=== PATIENT | male | born 1960 | race Caucasian/White ===

== ENCOUNTER 2019-02-07 09:30 | Emergency (ER) | payer BC ==
--- OUTSIDE RECORDS SUMMARY | 2019-02-07 09:31 | XMS REPORT ---
:1960 Author Organization eClinicalWorks Care Team Providers Name Role Phone Manuel, [facility] Provider Role Unavailable Allergies No Known Allergies Problems Problem Type Condition Code Onset Dates Condition Status Problem Kidney stone N20.0 Active Problem Elevated blood-pressure reading, R03.0 Active without diagnosis of hypertension Problem Seasonal allergic rhinitis, J30.2 Active unspecified trigger Problem Dermatitis due to plants, including L25.5 Active poison oscar, sumac, and oak Problem Body mass index (BMI) of 30.0 to 39.9 E66.9 Active Medications No Known Medications Results No Known Results Summary Purpose eClinicalWorks Submission
[2019-02-07] MEDS ORDERED: BUPIVACAINE 0.5% PF 10 ML VIAL ONE (09:51)
[2019-02-07] MEDS ORDERED: LIDOCAINE 1% MPF 5 ML VIAL ONE (09:51)
--- NOTE | 2019-02-07 10:32 | EDPHYS ---
Physician Documentation [facility] Name: Filipe Gutierrez Age: 58 yrs Sex: Male : 1960 Arrival Date: 02/07/2019 Time: 09:32 Bed 19 Private MD: Marty Manuel ED Physician Ismael Cruz HPI: 02/07 09:48 This 58 yrs old Male presents to ER via Ambulatory with complaints of Thumb kb Infection/Swelling. 09:48 The patient presents with an abscess of the dorsal aspect of distal phalanx of left kb thumb. Description: erythematous, swollen. Onset: The symptoms/episode began/occurred 4 day(s) ago. Possible cause(s): unknown. Associated signs and symptoms: Pertinent positives: erythema, swelling, Pertinent negatives: discharge, drainage, foreign body sensation, fever, headache, nausea, shortness of breath, vomiting. Modifying factors: the symptoms are alleviated by nothing, the symptoms are aggravated by nothing. Severity of symptoms: At their worst the symptoms were moderate, in the emergency department the symptoms are unchanged. The patient has not experienced similar symptoms in the past. The patient has not recently seen a physician. ROS: 09:47 Constitutional: Negative for fever, chills, and weight loss, Cardiovascular: Negative kb for chest pain, palpitations, and edema, Respiratory: Negative for shortness of breath, cough, wheezing, and pleuritic chest pain, Abdomen/GI: Negative for abdominal pain, nausea, vomiting, diarrhea, and constipation, MS/Extremity: Negative for injury and deformity, Neuro: Negative for headache, weakness, numbness, tingling, and seizure. 09:47 Skin: Positive for abscess, erythema, of the dorsal aspect of distal phalanx of left thumb. Exam: 09:47 Constitutional: This is a well developed, well nourished patient who is awake, alert, kb and in no acute distress. Head/Face: Normocephalic, atraumatic. Neck: Trachea midline, no thyromegaly or masses palpated, and no cervical lymphadenopathy. Supple, full range of motion without nuchal rigidity, or vertebral point tenderness. No Meningismus. Chest/axilla: Normal chest wall appearance and motion. Nontender with no deformity. No lesions are appreciated. Cardiovascular: Regular rate and rhythm with a normal S1 and S2. No gallops, murmurs, or rubs. Normal PMI, no JVD. No pulse deficits. Respiratory: Lungs have equal breath sounds bilaterally, clear to auscultation and percussion. No rales, rhonchi or wheezes noted. No increased work of breathing, no retractions or nasal flaring. Abdomen/GI: Soft, non-tender, with normal bowel sounds. No distension or tympany. No guarding or rebound. No evidence of tenderness throughout. MS/ Extremity: Pulses equal, no cyanosis. Neurovascular intact. Full, normal range of motion. Neuro: Awake and alert, GCS 15, oriented to person, place, time, and situation. Cranial nerves II-XII grossly intact. Motor strength 5/5 in all extremities. Sensory grossly intact. Cerebellar exam normal. Normal gait. 09:47 Skin: abscess, that is small, of the dorsal aspect of distal phalanx of left thumb, with fluctuance. Vital Signs: 09:51 BP 160 / 108 LA Sitting (/lg); Pulse 61; Resp 18; Temp 98.8; Pulse Ox 98% ; Pain 9/10; tt1 10:51 BP 158 / 95; em Procedures: 10:27 I \T\ D: Incision and drainage was performed for an abscess of the right dorsal aspect of kb distal phalanx of left thumb Prepped with alcohol, Anesthetized with block. Incised with 18G needle. Drained moderate amount purulent fluid. Dressing: sterile 4x4 gauze, the patient tolerated the procedure well. Nerve block: (digital) of right thumb Medication: Lidocaine 1% without epinephrine Marcaine 0.5%, Amount: 6 mls were injected, Effect: the patient's symptoms are improved, Set up for procedure. Performed by Alanis BERRY Patient tolerated well. MDM: 09:36 Patient medically screened. kb 09:47 Data reviewed: vital signs, nurses notes. Data interpreted: Pulse oximetry: on room air kb is 100 %. Interpretation: normal. 10:30 Counseling: I had a detailed discussion with the patient and/or guardian regarding: the kb historical points, exam findings, and any diagnostic results supporting the discharge/admit diagnosis, the need for outpatient follow up, a family practitioner, to return to the emergency department if symptoms worsen or persist or if there are any questions or concerns that arise at home. Administered Medications: 10:00 Drug: Lidocaine (1 %) 1 vials {Note: adminisitered by BRENDA Thapa.} Volume: 5 ml; em Route: Infiltration; Site: affected area; 10:10 Follow up: Response: No adverse reaction; Pain is decreased iw 10:00 Drug: Marcaine (0.5 %) 1 vials {Note: administered by BRENDA Thapa.} Volume: 10 ml; em Route: Infiltration; Site: affected area; 10:10 Follow up: Response: No adverse reaction; Pain is decreased iw 10:05 Drug: Bactrim (160 mg-800 mg (DS) 1 tablet Route: PO; em 10:51 Follow up: Response: Medication administered at discharge. em 10:45 Drug: Tylenol #3 (300 mg-30 mg) 2 tabs Route: PO; em 10:51 Follow up: Response: Medication administered at discharge. em Disposition: 02/07/19 10:32 Discharged to Home. Impression: Cutaneous abscess of right hand - paronychia, thumb. - Condition is Stable. - Discharge Instructions: Paronychia, Iusi-[id number]. - Prescriptions for Tylenol- Codeine #3 300-30 mg Oral Tablet - take 1 tablet by ORAL route every 6 hours As needed; 15 tablet. Bactrim DS 800- 160 mg Oral Tablet - take 1 tablet by ORAL route every 12 hours for 7 days; 14 tablet. - Medication Reconciliation Form, Thank You Letter, Antibiotic Education, Prescription Opioid Use form. - Follow up: Private Physician; When: 2 - 3 days; Reason: Recheck today's complaints, Continuance of care, Re-evaluation by your physician. Follow up: Emergency Department; When: As needed; Reason: Worsening of condition. Addendum: 02/09/2019 09:31 Co-signature as Attending Physician, Ismael Cruz MD I agree with the assessment and c garcia plan of care. Signatures: Alanis Webster, MANDOLIN REPAIRER-C MANDOLIN REPAIRER-Ismael Pop MD MD cha Munoz, Edgar, RUBBER TILE FLOOR LAYER RUBBER TILE FLOOR LAYER em Pinky Webber RN iw Corrections: (The following items were deleted from the chart) 02/07 10:54 10:32 02/07/2019 10:32 Discharged to Home. Impression: Cutaneous abscess of right hand em - paronychia, thumb. Condition is Stable. Forms are Medication Reconciliation Form, Thank You Letter, Antibiotic Education, Prescription Opioid Use. Follow up: Private Physician; When: 2 - 3 days; Reason: Recheck today's complaints, Continuance of care, Re-evaluation by your physician. Follow up: Emergency Department; When: As needed; Reason: Worsening of condition. kb
--- NOTE | 2019-02-07 10:32 | ER ---
Nurse's Notes [facility] Name: Filipe Gutierrez Age: 58 yrs Sex: Male : 1960 Arrival Date: 02/07/2019 Time: 09:32 Bed 19 Private MD: Marty Manuel Diagnosis: Cutaneous abscess of right hand-paronychia, thumb Presentation: 02/07 09:40 Presenting complaint: Patient states: pain to right thumb/thumbnail X 10 days, started iw after he trimmed nail with a pocket knife and clippers. Transition of care: patient was not received from another setting of care. Onset of symptoms was February 07, 2019. Risk Assessment: Do you want to hurt yourself or someone else? Patient reports no desire to harm self or others. Initial Sepsis Screen: Does the patient meet any 2 criteria? No. Patient's initial sepsis screen is negative. Does the patient have a suspected source of infection? No. Patient's initial sepsis screen is negative. Care prior to arrival: None. 09:40 Method Of Arrival: Ambulatory iw 09:40 Acuity: BENJI 4 iw Screenin:51 Abuse screen: Denies threats or abuse. Nutritional screening: No deficits noted. em Tuberculosis screening: No symptoms or risk factors identified. Fall Risk None identified. Assessment: 09:52 General: Appears in no apparent distress. comfortable, Behavior is calm, cooperative, em Denies fever. Pain: Complains of pain in right thumb. Neuro: Level of Consciousness is awake, alert, obeys commands, Oriented to person, place, time, situation. Cardiovascular: Capillary refill < 3 seconds Patient's skin is warm and dry. Respiratory: Airway is patent Respiratory effort is even, unlabored, Respiratory pattern is regular, symmetrical. Derm: Skin is intact, is healthy with good turgor, Skin is pink, warm \T\ dry. Musculoskeletal: Capillary refill < 3 seconds, Range of motion: intact in all extremities. Vital Signs: 09:51 BP 160 / 108 LA Sitting (/lg); Pulse 61; Resp 18; Temp 98.8; Pulse Ox 98% ; Pain 9/10; tt1 10:51 BP 158 / 95; em ED Course: 09:32 Patient arrived in ED. as 09:33 Marty Manuel, is Private Physician. as 09:33 Alanis Webster [facility]C [facility] kb 09:33 Ismael Cruz MD is Attending Physician. kb 09:39 Ismael Grier LVN is Primary Nurse. em 09:41 Triage completed. iw 09:51 Patient has correct armband on for positive identification. Bed in low position. Call em light in reach. Side rails up X 1. Side rails up X2. 10:52 No provider procedures requiring assistance completed. Patient did not have IV access em during this emergency room visit. Administered Medications: 10:00 Drug: Lidocaine (1 %) 1 vials {Note: adminisitered by NP. Alanis} Volume: 5 ml; em Route: Infiltration; Site: affected area; 10:10 Follow up: Response: No adverse reaction; Pain is decreased iw 10:00 Drug: Marcaine (0.5 %) 1 vials {Note: administered by NP. Alanis} Volume: 10 ml; em Route: Infiltration; Site: affected area; 10:10 Follow up: Response: No adverse reaction; Pain is decreased iw 10:05 Drug: Bactrim (160 mg-800 mg (DS) 1 tablet Route: PO; em 10:51 Follow up: Response: Medication administered at discharge. em 10:45 Drug: Tylenol #3 (300 mg-30 mg) 2 tabs Route: PO; em 10:51 Follow up: Response: Medication administered at discharge. em Outcome: 10:32 Discharge ordered by MD. kb 10:53 Discharged to home ambulatory, with family. em 10:53 Condition: good 10:53 Discharge instructions given to patient, family, Instructed on discharge instructions, follow up and referral plans. medication usage, Demonstrated understanding of instructions, follow-up care, medications, Prescriptions given X 2. 10:54 Patient left the ED. em Signatures: Alanis Webster FNP-C RECOVERY ENGINEERKyawb Ismael Grier LVN LVN em Perla Noland Irene, CINTHIA RN iw Elham Owen tt1
[2019-02-07] MEDS ORDERED: SMZ./TMP. 800/160 MG TABLET ONE (10:44)
[2019-02-07] MEDS ORDERED: CODEINE 30MG/APAP 300MG TAB ONE (10:44)
[2019-02-07 10:59] VITALS: TEMP 98.8; O2SAT 98
[2019-02-07 11:00] VITALS: BP 158/95
== END 2019-02-07 10:54 | disposition home or self-care (01) ==
LOC: ER 09:30
PROC: 0J9K0ZZ Drainage of Left Hand Subcutaneous Tissue and Fascia, Open Approach (ICD-10-PCS; principal; 2019-02-07)
DX: L03.012 Cellulitis of left finger (principal)
CPT/HCPCS: 64450; 99283

== ENCOUNTER 2019-08-19 06:46 | Day surgery (SDC) | payer BC ==
--- OUTSIDE RECORDS SUMMARY | 2019-08-19 06:48 | XMS REPORT ---
:1960 Author Organization eClinicalWorks Care Team Providers Name Role Phone Dilcia Manuelh Provider Role Unavailable Allergies, Adverse Reactions, Alerts Substance Reaction Event Type N.K.D.A. Info Not Available Non Drug Allergy Problems Problem Type Condition Code Onset Dates Condition Status Assessment Elevated blood-pressure reading, R03.0 Active without diagnosis of hypertension Assessment Encounter for preventative adult Z00.01 Active health care exam with abnormal findings Assessment Colon cancer screening Z12.11 Active Assessment Dermatitis L30.9 Active Assessment Need for pneumococcal vaccination Z23 Active Assessment Body mass index (BMI) of 30.0 to E66.9 Active 39.9 Problem Seasonal allergic rhinitis, J30.2 Active unspecified trigger Problem Kidney stone N20.0 Active Problem Non-seasonal allergic rhinitis, J30.89 Active unspecified trigger Problem Body mass index (BMI) of 30.0 to E66.9 Active 39.9 Problem Elevated blood-pressure reading, R03.0 Active without diagnosis of hypertension Problem Dermatitis due to plants, including L25.5 Active poison oscar, sumac, and oak Medications Medication Code Code Instructions Start End Status Dosage System Date Date Montelukast [facility] 09656174484 10 MG Orally August Active 1 tablet in Sodium Once a day 22, the evening 2017 Triamcinolone [facility] 83031835538 0.1 % Active 1 application Acetonide Externally Once a day PRN Results No Known Results Immunizations Vaccine Administration Date PNEUMAVAX Jul 14, 2019 Summary Purpose eClinicalWorks Submission
--- OUTSIDE RECORDS SUMMARY | 2019-08-19 06:48 | XMS REPORT ---
:1960 Author Organization eClinicalWorks Care Team Providers Name Role Phone Marty Manuel Provider Role Unavailable Allergies, Adverse Reactions, Alerts Substance Reaction Event Type N.K.D.A. Info Not Available Non Drug Allergy Problems Problem Type Condition Code Onset Dates Condition Status Assessment Acute non-recurrent maxillary J01.00 Active sinusitis Assessment Non-seasonal allergic rhinitis, J30.89 Active unspecified trigger Problem Seasonal allergic rhinitis, J30.2 Active unspecified [...] Start End Status Dosage System Date Date Azithromycin ND 57214660631 250 MG Orally Mar 11Mar Active 2 tablets Once a day 2018 16, on the 2018 first day, then 1 tablet daily for 4 days Montelukast ND 04596576330 10 MG Orally August Active 1 tablet Sodium Once a day 2017 in the evening Results No Known Results Summary Purpose eClinicalWorks Submission
--- OUTSIDE RECORDS SUMMARY | 2019-08-19 06:48 | XMS REPORT ---
[...] Start End Status Dosage System Date Date Amoxicillin-Pot [facility] 22875187661 875-125 MG Jun 09, Jun 19, Active 1 tablet Clavulanate Orally every 2018 2019 hrs Montelukast [facility] 62652577537 10 MG Orally August Active 1 tablet Sodium Once a day 2017 in the evening Results Name Result Date Reference Range Unit Abnormality Flag STREP A RAPID ----Result NEG [id number] FLU TEST A/B ----B NEG [id number] ----A NEG [id number] Summary Purpose eClinicalWorks Submission
--- OUTSIDE RECORDS SUMMARY | 2019-08-19 06:48 | XMS REPORT ---
:1960 Author Organization eClinicalWorks Care Team Providers Name Role Phone [facility] Provider Role Unavailable Allergies No Known Allergies Problems Problem Type Condition Code Onset Dates Condition Status Assessment Bilateral kidney stones N20.0 Active Problem Body mass index (BMI) of 30.0 to E66.9 Active 39.9 Assessment High calcium levels E83.52 Active Problem High calcium levels E83.52 Active Problem Non-seasonal allergic rhinitis, J30.89 Active unspecified trigger Problem Bilateral kidney stones N20.0 Active Problem Elevated blood-pressure reading, R03.0 Active without diagnosis of hypertension Problem Dermatitis due to plants, including L25.5 Active poison oscar, sumac, and oak Problem Seasonal allergic rhinitis, J30.2 Active unspecified trigger Problem Kidney stone N20.0 Active Medications No Known Medications Results No Known Results Summary Purpose eClinicalWorks Submission
--- OUTSIDE RECORDS SUMMARY | 2019-08-19 06:49 | XMS REPORT ---
:1960 Author Organization eClinicalWorks Care Team Providers Name Role Phone Kaleb Pending [facility] Provider Role Unavailable Allergies No Known Allergies Problems Problem Type Condition Code Onset Dates Condition Status Assessment High calcium levels E83.52 Active Problem Body mass index (BMI) of 30.0 to E66.9 Active 39.9 Assessment Elevated parathyroid hormone E34.9 Active Problem High calcium levels E83.52 Active [...]
--- OUTSIDE RECORDS SUMMARY | 2019-08-19 06:49 | XMS REPORT ---
:1960 Author Organization eClinicalWorks Care Team Providers Name Role Phone Kaleb Marty Provider Role Unavailable Allergies No Known Allergies Problems Problem Type Condition Code Onset Dates Condition Status Problem Dermatitis due to plants, including L25.5 Active poison oscar, sumac, and oak Problem Body mass index (BMI) of 30.0 to E66.9 Active 39.9 Problem Elevated blood-pressure reading, R03.0 Active without diagnosis of hypertension Assessment Elevated parathyroid hormone E34.9 Active Assessment High calcium levels E83.52 Active Assessment Hyperparathyroidism E21.3 Active Problem Serum calcium elevated E83.52 Active Problem Bilateral kidney stones N20.0 Active Problem Hyperparathyroidism E21.3 Active Problem Seasonal allergic rhinitis, J30.2 Active unspecified trigger Problem Kidney stone N20.0 Active Problem High calcium levels E83.52 Active Problem Non-seasonal allergic rhinitis, J30.89 Active unspecified trigger Medications No Known Medications Results No Known Results Summary Purpose eClinicalWorks Submission
[2019-08-19] MEDS ORDERED: Ringers Lactate 1,000 ML IV ONE (07:08)
[2019-08-19] MEDS ORDERED: LIDOCAINE 1% 20 ML MDV ONE (07:11)
[2019-08-19] MEDS ORDERED: propofoL 200 MG/20 ML VIAL IV ONE (07:15)
[2019-08-19] MEDS ORDERED: LIDOCAINE 1% MPF 5 ML VIAL ONE (07:15)
--- NOTE | 2019-08-19 08:24 | ENDO RPT ---
[address], [address] COLONOSCOPY PROCEDURE REPORT EXAM DATE: 08/19/2019 PATIENT NAME: Filipe Gutierrez MR #: [id number] BIRTHDATE: 1960 ATTENDING: Robert Noland MD STATUS: outpatient SENIOR CONTROL SYSTEMS ENGINEER: Sunita Pérez, Emi Friend RN, Ekta Lyn CST, and Cris Doherty RN INDICATIONS: The patient is a 58 yr old Male here for a colonoscopy due to history of polyps PROCEDURE PERFORMED: Colonoscopy MEDICATIONS: Per Anesthesia. ESTIMATED BLOOD LOSS: None CONSENT: The patient understands the risks and benefits of the procedure and understands that these risks include, but are not limited to: sedation, allergic reaction, infection, perforation and/or bleeding. Alternative means of evaluation and treatment include, among others: physical exam, x-rays, and/or surgical intervention. The patient elects to proceed with this endoscopic procedure. DESCRIPTION OF PROCEDURE: During intra-op preparation period all mechanical medical equipment was checked for proper function. Hand hygiene and appropriate measures for infection prevention was taken. Procedure, possible complications, alternatives including, but not limited to possibility of bleeding, perforation, tear, infection, sepsis, need for surgery, need for blood transfusion, were explained to the patient. After the risks, benefits and alternatives of the procedure were thoroughly explained, Informed consent was verified, confirmed and timeout was successfully executed by the treatment team. The patient was placed in the left lateral position. A digital rectal exam was performed and revealed external hemorrhoids. After appropriate level of anesthesia, the scope was passed. The [id number] ([id number]) endoscope was introduced through the anus and advanced to the . The quality of the prep was good. The instrument was then slowly withdrawn as the colon was fully examined. Scope withdrawal time was . COLON FINDINGS: Diverticulum was found in the descending colon. Retroflexed views revealed no abnormalities. The scope was then completely withdrawn from the patient and the procedure terminated. ADVERSE EVENTS: There were no complications. IMPRESSIONS: 1. 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 External hemorrhoids 3. Internal hemorrhoids RECOMMENDATIONS: 1. follow-up: office 1-2 week(s) 2. no seeds in diet RECALL: Return in 3 year(s) for Colonoscopy. Pt has previous history of polyps of unknown . No pathology results available from previous study Robert Noland MD eSigned: Robert Noland MD 08/19/2019 8:23 AM cc: Marty Manuel MD CPT CODES: ICD9 CODES: PATIENT NAME: Filipe Gutierrez MR#: [id number]
[2019-08-19 08:46] VITALS: BP 125/76; TEMP 97.9; O2SAT 95
== END 2019-08-19 08:50 | disposition home or self-care (01) ==
LOC: OR 06:46
PROVIDERS: ATTEND Surgery
PROC: 0DJD8ZZ Inspection of Lower Intestinal Tract, Via Natural or Artificial Opening Endoscopic (ICD-10-PCS; principal; 2019-08-19 07:30)
DX: Z12.11 Encounter for screening for malignant neoplasm of colon (principal); K57.30 Diverticulosis of large intestine without perforation or abscess without bleeding; K64.8 Other hemorrhoids; K64.4 Residual hemorrhoidal skin tags; I10 Essential (primary) hypertension; Z86.010 Personal history of colon polyps
CPT/HCPCS: 45378; J2704; J7120